=== PATIENT | female | born 1985 | race Two or more races ===

== ENCOUNTER → 2023-05-31 10:30 | Outpatient (BNVA) | payer MEDICARE, OTHER, SELFPAY | PROVIDERS: PCP Student in an Organized Health Care Education/Training Program; Visit Provider Physician Assistant ==

== ENCOUNTER 2023-07-12 11:03 | Outpatient (AMB) | payer MEDICARE, MEDICAID, SELFPAY ==
--- NOTE | 2023-07-12 11:04 | A.OFFVIS_ITS ---
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 She herd about our program from her PCP. Her goal is to lose weight and achieve a healthy lifestyle as well as to improve, if not resolve, obesity related medical conditions, including DM. She reports first being concerned about her weight 5 years ago, highest weight to date was 197. Current weight is 197 pounds with a BMI of 36.6. She has tried multiple methods of weight loss including fad diets without permanent results. She lives with her and 3 kids. 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 She wakes at:?7 am, and goes to bed at?11 pm. Dinner is at 9 pm. Breakfast: skip or cereal frosted flakes w oat milk AM snack: skip Lunch: pasta, chicken, PB and bread PM snack: skip Dinner: rice w meat, ho, steak, vegetables. After dinner: dessert Other snacks: ice cream, popcorn Liquids: 48 oz water, moshe 2 x per month when out at movies, no juice Alcohol/marijuana/tobacco intake: rare etoh, no cannabis, no tobacco Exercise: no exercise, has treadmill at home. GERD score: 16 KEMAR score: 6 ESS score: 4 QOL score: 87 PFSH Surgical History Hx of colonoscopy Family History Mother Family history unknown Father Family history unknown Social History Alcohol intake: current Alcohol intake frequency: holidays/special occasions only Patient Tobacco Use Status: Never used Tobacco Review of Systems Const All systems reviewed & are unremarkable except as noted in HPI and below Physical Exam Const General: cooperative, healthy appearing and no acute distress Orientation/consciousness: patient oriented x3 HEENT Head: Yes normal to inspection Ears: hearing grossly normal bilaterally General nose exam: Normal external nose present Face and sinus: Yes normal facial exam Eyes General: appearance normal, both eyes and all related structures Resp Effort & Inspection: normal respiratory effort Auscultation: clear to auscultation bilaterally Cardio Rate: regular rate Rhythm: regular rhythm Heart sounds: S1 normal heart sound present and S2 normal heart sound present GI Inspection: Yes normal to inspection, No distended and Yes obesity Palpation (GI): Soft to palpation, nontender and no guarding Auscultation: normal bowel sounds Skin General skin exam: no rashes or lesions noted Neuro General: patient oriented x3 Extrem General: No edema Psych Appearance: grossly normal Mental Status: mental status grossly normal Speech and movement: Normal speech and movement present Affect: normal affect Attitude: cooperative Assessment & Plan Assessment & Plan (1) Obesity (BMI 30-39.9): Code(s): E66.9 - Obesity, unspecified Plan: This is a?37 yo female who will start our SWL program to prepare for bariatric surgery.? Blood work, h pylori , CXR, ECG, Abd US and UGI have been ordered. She is being scheduled for RD and BH initial consultations. She will start SWL classes and watch the first three videos before her next appointment. ? Adequate sleep of 7-8 hours per night discussed, awakening at 7 am and going to bed at 11 pm ? Purchase body composition analyzer scale (Adrián castorena or Dejuan recommended) and check weight weekly. The best time to do this is first thing in the morning after going to the bathroom. 1. Nutritional counseling: Be sure to careful read the number of scoops per shake Start with 3 Premier Protein shakes (Big y, [facility], [employer], [employer]), (1 scoop in 8 oz low fat unsweetened almond milk or water each) First shake at 8am-10am, Second shake at 12pm-2pm 1 protein bar ([employer] Perfect bars at [employer], [email or web address], or Big [employer], [employer]) at 3pm- 5pm. Another shake with 1 scoop in 8 oz unsweetened almond milk at 6pm-8pm. Dinner at 9pm (8 forks of protein and 8 forks of salad/vegetables). Meal to include lean meat (beef, fish, pork, turkey, chicken), cooked vegetables or a salad with olive oil and/or fruits (berries, pears, apples, kiwi). Avoid salt, breads, potatoes, rice, pasta, desserts. Try to drink 64 oz of water daily and avoid soda and juices. ?2. Each shake would be drunk slowly, like coffee in a period of 2 hours. ?3. Cut each bar in 4 pieces and eat each piece in 30 min ?to make each bar last 2 hours. ?4. I emphasized the importance of measuring accurately the food portion and measure it carefully when serving the food on the plate ?5. The meal portions include 8 full-size forks of meat and 8 full-size forks of salad. You always eat the meat portion but you can replace up to half of the forks of salad/vegetables with rice, potatoes or pasta, or a fruit ?if you like. The less you do it the better weight loss will be. ?6. One full-size fork is what can be scooped on the fork without falling aside and not what can be bit with the fork. Use regular forks like those you find in a typical restaurant. ?7.? Please send me weight measurements as soon as possible and then once a week. Always include your diet and exercise plan. Alternatively come weekly at the office for weight checks and send me the measurements. ?8. Exercise counseling: Begin by watching a stretching for beginners video. Start slowly and begin to stretch your muscles. You should do this before and after each exercise session to prevent injury. If you join [employer] or use the gym at [facility], ask the manager beauty or one of the trainers how to use the machines if you are unfamiliar with them. Start elliptical with a resistance of 2. Increase resistance by 1 every 3 min to your most comfortable resistance with a max resistance of 8. Reduce the resistance by 1 every 3 minutes back down to 2 and repeat cycles for 300 calories. Alternatively, use your treadmill at home with a speed of 3.0 and incline of 0, increasing incline by 1 every 3 minutes to the highest comfortable level (max 6 for now) then decrease in the same fashion. Repeat process to a goal of 300 calories. Goal of 2000 calories burned or more weekly. You may also consider use of the stationary bike. The easiest would be to chose the fat-burn or interval training program on the machine and do this until you reach the 300 calorie goal. Alternatively, you can manually adjust the resistance in a similar fashion as mentioned above, (resistance of 2-8 with a goal speed of 12 mph). Tracking calories is essential. 9. Alternatively start walking outside daily, tracking calories with a goal of 300 calories per day, daily. You can download the keron [employer] which can track your time, distance and calories while walking outside. You press start in the keron when you start and then stop when you are finished. 10.? It is important to avoid for at least 18 months postoperatively and it has been discussed at the information session 11. Please get labs, EKG and chest X-Ray within 1 week. 12. Discussed and answered all questions regarding?obtained consent to participate in the [facility]?Registry. 13. Please follow the diet plan exactly, without any change. If you do not like something about the plan or you feel hungry, you need to communicate with me so I can help you revise the plan. You should not change the plan yourself. Text me at [phone] 14. Goal is to lose at least 3-4 pounds in the first month Patient is obese and is not considered stable at this time.?I spent a total of 70 minutes reviewing/updating records, examining the patient and counseling the patient on weight management as detailed above. Orders: Orders Lipid Panel Today E11.9 - Type 2 diabetes mellitus without complications, E66.9 - Obesity, unspecified IRON PROFILE Today E11.9 - Type 2 diabetes mellitus without complications, E66.9 - Obesity, unspecified Complete Blood Count Auto Diff Today E11.9 - Type 2 diabetes mellitus without complications, E66.9 - Obesity, unspecified Vitamin B12 and Folate Today E11.9 - Type 2 diabetes mellitus without complications, E66.9 - Obesity, unspecified Zinc Today E11.9 - Type 2 diabetes mellitus without complications, E66.9 - Obesity, unspecified Vitamin B1 Today E11.9 - Type 2 diabetes mellitus without complications, E66.9 - Obesity, unspecified C Reactive Protein Today E11.9 - Type 2 diabetes mellitus without complications, E66.9 - Obesity, unspecified PTHI Today E11.9 - Type 2 diabetes mellitus without complications, E66.9 - Obesity, unspecified Vitamin D 25-OH Total Today E11.9 - Type 2 diabetes mellitus without complications, E66.9 - Obesity, unspecified Hemoglobin A1c Today E11.9 - Type 2 diabetes mellitus without complications, E66.9 - Obesity, unspecified US abdomen comp w elastography Today E11.9 - Type 2 diabetes mellitus without complications, E66.9 - Obesity, unspecified FL upper GI w air Today E11.9 - Type 2 diabetes mellitus without complications, E66.9 - Obesity, unspecified Insulin Today E11.9 - Type 2 diabetes mellitus without complications, E66.9 - Obesity, unspecified Comprehensive Met. Panel Today E11.9 - Type 2 diabetes mellitus without complications, E66.9 - Obesity, unspecified Vitamin A Today E11.9 - Type 2 diabetes mellitus without complications, E66.9 - Obesity, unspecified Ferritin Today E11.9 - Type 2 diabetes mellitus without complications, E66.9 - Obesity, unspecified TSH reflex Free T4 Today E11.9 - Type 2 diabetes mellitus without complications, E66.9 - Obesity, unspecified H Pylori Breath Test Today E11.9 - Type 2 diabetes mellitus without complications, E66.9 - Obesity, unspecified XR chest 2V Today E11.9 - Type 2 diabetes mellitus without complications, E66.9 - Obesity, unspecified ECG 12 lead EKG Today E11.9 - Type 2 diabetes mellitus without complications, E66.9 - Obesity, unspecified Referrals Behavioral Health Referral E11.9 - Type 2 diabetes mellitus without co mplications, E66.9 - Obesity, unspecified Nutrition/Dietitian Referral E11.9 - Type 2 diabetes mellitus without complications, E66.9 - Obesity, unspecified Coding Level of Care Code New Pt Level 5 (85619) Diagnoses Obesity (BMI 30-39.9) E66.9 Time Spent (min) 70
[2023-07-12 11:18] VITALS: BP 123/67; PULSE 80; TEMP 36.7; O2SAT 99; BMI 36.6
== END 2023-07-12 15:18 | disposition home or self-care (01) ==
PROVIDERS: PCP Student in an Organized Health Care Education/Training Program; Visit Provider Physician Assistant Surgical
DX: E66.9 Obesity, unspecified (principal); Z68.36 Body mass index [BMI] 36.0-36.9, adult
CPT/HCPCS: 99205

== ENCOUNTER → 2023-07-12 11:03 | Outpatient (BNVA) | payer MEDICARE, MEDICAID, SELFPAY | PROVIDERS: PCP Student in an Organized Health Care Education/Training Program; Visit Provider Physician Assistant Surgical ==

== ENCOUNTER 2023-07-16 10:13 | Outpatient (REF) | payer MEDICARE, MEDICAID, SELFPAY ==
--- NOTE | ~2023-07-16 | US_ITS ---
EXAMINATION: US COMPLETE ABDOMEN WITH LIVER ELASTOGRAPHY CLINICAL INFORMATION: Obesity COMPARISON: None available. TECHNIQUE: Real-time imaging of the abdominal viscera. Noninvasive ultrasound liver fibrosis assessment is performed using Alexis ElastPQ point quantification shear wave elastography (2D-SWE) with a C5-2 MHz transducer. Multiple elastography samples are obtained. FINDINGS: PANCREAS: Normal. ABDOMINAL AORTA: The proximal, middle, and distal aortic segments are normal in caliber. INFERIOR VENA CAVA: Visualized portions are normal. LIVER: Normal. The liver demonstrates normal size, contour and echogenicity. No focal lesion or intrahepatic biliary duct dilatation. The right lobe measures 14 cm in length. The left lobe measures 12 cm in length. Portal flow is normal/hepatopedal Shear wave liver elastography median stiffness is 1.4 m/s (reference: normal median stiffness is 1.3 m/s or less). IQR/median stiffness to assess sampling precision is 0.1 (reference: good quality data set is IQR/median stiffness of 0.15 or less). GALLBLADDER: Normal. The gallbladder is physiologically distended without evidence of stones, sludge, polyps, wall thickening or pericholecystic fluid. COMMON BILE DUCT: Normal in caliber measuring 0.3 cm in diameter. RIGHT KIDNEY: Normal. No hydronephrosis. No renal calculi or focal parenchymal lesions. The kidney measures 11 cm in maximum dimension. LEFT KIDNEY: There is a 2 x 2 x 1.5 cm cyst with single thin septation. No imaging follow-up recommended. No hydronephrosis. No renal calculi or other focal parenchymal lesions. The kidney measures 12 cm in maximum dimension. SPLEEN: Normal. The spleen measures 9 cm in maximum dimension. FREE FLUID: None. US/US abdomen comp w elastography IMPRESSION: 1. Impression: Normal-appearing liver 2. Liver elastography: Adequate liver sampling. In the absence of other known clinical signs, rules out compensated advanced chronic liver disease. REFERENCE: Society of Radiologists in Ultrasound Liver Stiffness Thresholds (2020): LIVER STIFFNESS THRESHOLDS: *Liver Stiffness equal or less than 1.3 m/s: High probability of being normal. *Liver Stiffness less than 1.7 m/s: In the absence of other known clinical signs, rules out compensated advanced chronic liver disease. *Liver Stiffness 1.7-2.1 m/s: Suggestive of compensated advanced chronic liver disease but need further test for confirmation. *Liver Stiffness over 2.1 m/s: Rules in compensated advanced chronic liver disease. *Liver Stiffness over 2.4 m/s: Suggestive of clinically significant portal hypertension. QUALITY OF DATA SET: *IQR/Median value equal or less than 0.15 implies a quality data set. *IQR/Median value over 0.15 implies a poor quality data set. SIGNIFICANT CHANGE FROM PRIOR EXAM: Significant change if liver stiffness measurement is 10% or greater from prior exam. OTHER CONSIDERATIONS: The stage of liver fibrosis may be overestimated in the setting of acute hepatitis, liver inflammation, elevated liver function tests, hepatic vascular congestion, obstructive cholestasis, non-fasting state, and infiltrative diseases such as amyloidosis and lymphoma. In some patients with NAFLD, the liver stiffness thresholds for compensated advanced chronic liver disease may be lower. In causes other than viral hepatitis and NAFLD, liver stiffness thresholds are not well established.
== END 2023-07-16 10:14 | disposition home or self-care (01) ==
LOC: HO.US 10:13
PROVIDERS: Visit Provider Physician Assistant Surgical
DX: E66.9 Obesity, unspecified (principal); E11.9 Type 2 diabetes mellitus without complications
CPT/HCPCS: 76705; 76981

== ENCOUNTER 2023-07-31 09:00 | Outpatient (AMB) | payer MEDICARE, MEDICAID, SELFPAY ==
--- NOTE | 2023-07-31 09:10 | MHC.WMTHER ---
Intake Intake Visit Reasons: VIDEO BH Intake Allergies No Known Allergies Allergy (Verified 07/12/23 11:08) PFSH Surgical History Hx of colonoscopy Family History Mother Family history unknown Father Family history unknown Social History Alcohol intake: current Alcohol intake frequency: holidays/special occasions only Patient Tobacco Use Status: Never used Tobacco Behavioral Health Assessment Weight Management Therapy Therapy Notes Details Patient is a 37 year old female, who presents for initial behavioral health assessment as part of surgical weight-loss program. PT reports being interested in bariatric surgery to help with her weight loss and to get in tack with her health and life.Her goal is to be at her healthy weight, make healthier food options and feel well with herself. PT disclosed a history of trauma, been in treatment for PTSD, social anxiety, panic attacks and depression. We were unable to complete assessment as we encountered connection issues on multiple times. So we will follo up again in about 4 weeks to finish assessment. Presenting Concerns Referral Source WMP Provider. Pt sees Yasmany Garibay. Reason for referral Complete assessment for bariatric surgery. Precipitating Event Obesity, mental health. Was attending gym last year and didn't see results. Living Situation Current Living Situation Rent At risk of losing current housing? No Satisfied with current living situation? Yes Comments Pt lives with 3 children. Food/Weight/Diet Expectations of change Initial goal is to lose 4-5 Lbs on first month at the program. She wants to be at her healthy BMI or around 125Lbs. History/Relationship with food Tends to skip meals, often will have 1 or 2 meals at day, some other no meals at day. . Meals before starting program: Breakfast: Skip. Once in a while a bowl of cereal if very hungry. Lunch: Skip or Bread/butter/cheese or a PBG sandwich. Dinner: @9-10pm Rice, grilled chicken. Doesn't eat salad unless someone's make it. It can be a bigger portion than usual if hasn't eat all day. Dessert: ice-cream 2x month. Dinner-out 2xmonth. Water trough the day. History/Relationship with weight She was 115-120Lbs around age 17 (2001) before having kids. After 3rd child (2016) she never went under 190Lbs. History/Relationship with dieting Gym membership. 2022 - 3-4 days at week, did weights, conditioning training, body strength and cardio. didn't lose weight. Potion control. Was seen a computer graphics illustrator on a monthly basis at [facility] in [place]. Binge Eating Do you frequently eat large amounts of food in short periods of time, not feeling physically hungry? No Do you feel out of control when you eat a large amount of food in a short period of time? No Do you eat large amounts of food rapidly and typically alone? No Night Eating Do you wake up at least once during the night to eat? No If you wake up in the night, do you find that it is necessary to eat something in order to fall back asleep? No Do you have little or no appetite in the morning and feel very hungry in the evening, often overeating between dinner and when you go to bed? No Social History Cultural/Ethnic information From [facility]. Education Highest grade completed 12th grade. Currently in college. Preferred learning style Visual Currently enrolled in educational program? Yes (At [employer]. Part-time student. Hoping to get her degree in Mobile Event [employer]. ) Interested in further educational program? No Educational Interests/Skills Wants to work fully remote. 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 No Meaningful activities Traveling, watch favorite shows. Financial Situation Describe current financial situation Occasional struggle and Often struggles with finance Financial assistance? [employer] and SSI (For herself.) Service Service? No Mental Health and Addiction Treatment Psychiatric history Disabled due to mental health issues. Pt reports she suffers from PTSD, Social anxiety, panic attacks, Major depression. Never hospitalized for mental health, denies ever been in crisis. Medical and Physical Health Summary Additional Medical History not covered in history None reported Sexual History concerns [phone] Physical exam in the last year? Yes Trauma/Abuse History History of trauma? Yes Questionnaires PHQ-9 Over the last 2 weeks, how often have you been bothered by any of the following problems? 1. Little interest or pleasure in doing things: nearly every day 2. Feeling down, depressed, or hopeless: more than half the days 3. Trouble falling or staying asleep, or sleeping too much: nearly every day 4. Feeling tired or having little energy: nearly every day 5. Poor appetite or overeating: nearly every day 6. Feeling bad about yourself - or that you are a failure or have let yourself or your family down: nearly every day 7. Trouble concentrating on things, such as reading the newspaper or watching television: more than half the days 8. Moving or speaking so slowly that other people could have noticed. Or the opposite - being so fidgety or restless that you have been moving around a lot more than usual: not at all 9. Thoughts that you would be better off or of hurting yourself in some way: not at all Total score: 19 Depression Screening Interpretation: Positive (Scores from PHQ-9 done at intake. Will repeat next appointment.) Depression Screening Follow-up: Existing condition, In treatment and Follow-up Visit Requested Depression Screening Done: Yes Source: Developed by Drs. Zachary Crook, Colette Victor, Miguel Maradiaga and colleagues, with an educational betsey from [employer]. Binge Eating Scale Group 1 A. I don't feel self-conscious about my wt. or body size when I'm with others. B. I feel concerned about how I look to others, but it normally does not make me fell disappointed with myself C. I do get self-conscious about my appearance and wt. which makes me feel disappointed in myself. D. I feel very self-conscious about my wt. and frequently I feel intense shame and disgust for myself. I try to avoid social contacts because of my self-consciousness. Response Group 1: D Group 2 A. I don't have any difficulty eating slowly in the proper manner. B. Although I seem to gobble down foods, I don't end up feeling stuffed because of eating to much. C. At times, I tend to eat quickly and then, I feel uncomfortably full afterwards. D. I have the habit of bolting down my food, without really chewing it. When this happens I usually feel uncomfortably stuffed because I've eaten to much. Response Group 2: A Group 3 A. I feel capable to control my eating urges when I want to. B. I feel like I have failed to control my eating more than the average person. C. I feel utterly helpless when it comes to feeling in control of my eating urges. D. Because I feel so helpless about controlling my eating I have become very desperate about trying to get control. Response Group 3: C Group 4 A. I don't have the habit of eating when I'm bored. B. I sometimes eat when I'm bored, but often I'm able to get busy and get my mind off food. C. I have a regular habit of eating when I'm bored, but occasionally, I can use some other activity to get my mind off eating. D. I have a strong habit of eating when I'm bored. Nothing seems to help me breath the habit. Response Group 4: A Group 5 A. I'm usually physically hungry when I eat something. B. Occasionally, I eat something on impulse even though I really am not hungry. C. I have the regular habit of eating foods, that I might not really enjoy, to satisfy a hungry feeling even though physically, I don't need the food. D. Although I'm not physically hungry, I get a hungry feeling in my mouth that only seems to be satisfied when I eat a food, like sandwich, that fills my mouth. Sometimes, when I eat the food to satisfy my mouth hunger, I then spit the food out so I won't gain weight. Response Group 5: B Group 6 A. I don't feel any guilt or self-hate after I overeat. B. After I overeat, occasionally I feel guilt or self-hate. C. Almost all the time I experience strong guilt or self-hate after I overeat. Response Group 6: B Group 7 A. I don't lose total control of my eating when dieting even after periods when I overeat. B. Sometimes when I eat a forbidden food on a diet, I feel like I blew it and eat even more. C. Frequently, I have the habit of saying to myself, I've blown it now, why not go all the way, when I overeat on a diet. When that happens I eat more. D. I have a regular habit of starting a strict diets for myself but I break the diets by going on an eating binge. My life seems to be either a feast or famine. Response Group 7: A Group 8 A. I rarely eat so much food that I feel uncomfortably stuffed afterwards. B. Usually about once a month, I each such a quantity of food, I end up feeling very stuffed. C. I have regular periods during the month when I eat large amounts of food, either at mealtime or at snacks. D. I eat so much food that I regularly feel quite uncomfortable after eating and sometimes a bit nauseous. Response Group 8: B Group 9 A. My level of calorie intake does not go up very high or go down very low on a regular basis. B. Sometimes after I overeat, I will try to reduce my caloric intake to almost nothing to compensate for the excess calories I've eaten. C. I have a regular habit of overeating during the night. It seems that my routine is not to be hungry in the morning but overeat in the evening. D. In my adult years, I have had week-long periods where I practically starve myself. This follows periods when I overeat. It seems I live a life of either feast or famine. Response Group 9: A Group 10 A. I usually am able to stop eating when I want to. I know when enough is enough. B. Every so often, I experience a compulsion to eat which I can't seem to control. C. Frequently, I experience strong urges to eat which I seem unable to control, but at other times I can control my eating urges. D. I feel incapable of controlling urges to eat. I have a fear of not being able to stop eating voluntarily. Response Group 10: A Group 11 A. I don't have any problem stopping eating when I feel full. B. I usually can stop eating when I feel full but occasionally overeat leaving me feeling uncomfortably stuffed. C. I have a problem stopping eating once I start and usually I feel uncomfortably stuffed after I eat a meal. D. Because I have a problem not being able to stop eating when I want, I sometimes have to induce vomiting to relieve my stuffed feeling. Response Group 11: A Group 13 A. I eat three meals a day with only an occasional between meal snack. B. I eat 3 meals a day, but I also normally snack between meals. C. When I am snacking heavily, I get in the habit of skipping regular meals. D. There are regular periods when I seem to be continually eating, with no planned meals. Response Group 13: D Group 14 A. I don't think much about trying to control unwanted eating urges. B. At least some of the time, I feel my thoughts are pre-occupied with trying to control my eating urges. C. I feel that frequently I spend much time thinking about how much I ate or about trying not to eat anymore. D. It seems to me that most of my waking hours are pre-occupied by thoughts about eating or not eating. I feel like I'm constantly struggling not to eat. Response Group 14: C Group 15 A. I don't think about food a great deal. B. I have strong craving for food but they last only for brief periods of time. C. I have days when I can't seem to think about anything else but food. D. Most of my days seem to be pre-occupied with thoughts about food. I feel like I live to eat. Response Group 15: A Group 16 A. I usually know whether or not I'm physically hungry. I take the right portion of food to satisfy me. B. Occasionally, I feel uncertain about knowing whether or not I'm physically hungry. A these times it's hard to know how much food I should take to satisfy me. C. Even though I might know how many calories I should eat, I don't have any idea what is a normal amount of food for me. Response Group 16: B Binge Eating Score: 14 Score less than 17 Minimal Risk Score between 18-26 Moderate Risk Score between 27-46 High Risk Assessment & Plan Assessment & Plan (1) PTSD (post-traumatic stress disorder): Code(s): F43.10 - Post-traumatic stress disorder, unspecified (2) Depression: Code(s): F32.A - Depression, unspecified Qualifiers: Depression Type: unspecified Qualified Code(s): F32.A - Depression, unspecified (3) Panic attacks: Code(s): F41.0 - Panic disorder [episodic paroxysmal anxiety] Plan Assessment not finished due to connections issues. We will meet again in 08/26/23 at 9am via telehealth to finish assessment. Telehealth Telehealth Location of provider rendering services: other (Home office. [place], [place].) Location of patient: address on file Patient Identification confirmed using: Name, : Yes Telehealth method: video Patient verbally consented to treatment: Yes Patient verbally consented to billing insurance company: Yes Patient informed of any privacy concerns related to visit: Yes Minutes spent on Phone/Video with Pt.: 45 Coding Level of Care Code New Pt Tele Psy Diag Eval (84747) Patient Type New Diagnoses PTSD (post-traumatic stress disorder) F43.10 Depression, unspecified depression type F32.A Depression Type: unspecified Panic attacks F41.0 Time Spent (min) 45
== END 2023-07-31 10:00 | disposition home or self-care (01) ==
LOC: HO.HBST 09:17
PROVIDERS: PCP Student in an Organized Health Care Education/Training Program; Visit Provider Counselor Mental Health
DX: F43.10 Post-traumatic stress disorder, unspecified (principal); F32.A Depression, unspecified; F41.0 Panic disorder [episodic paroxysmal anxiety]
CPT/HCPCS: 90791

== ENCOUNTER → 2023-07-31 09:00 | Outpatient (BNVA) | payer MEDICARE, MEDICAID, SELFPAY | PROVIDERS: PCP Student in an Organized Health Care Education/Training Program; Visit Provider Counselor Mental Health ==

== ENCOUNTER 2023-08-02 10:59 | Outpatient (REF) | payer MEDICARE, MEDICAID, SELFPAY ==
[2023-08-04 15:19] LABS: H Pylori Breath Test Negative (Negative)
== END 2023-08-02 11:00 | disposition home or self-care (01) ==
LOC: HO.LNP 10:59
PROVIDERS: PCP Student in an Organized Health Care Education/Training Program; Visit Provider Physician Assistant Surgical
DX: E66.9 Obesity, unspecified (principal); E11.9 Type 2 diabetes mellitus without complications; Z11.0 Encounter for screening for intestinal infectious diseases
CPT/HCPCS: 83013; 99211

== ENCOUNTER 2023-08-09 10:53 | Outpatient (REF) | payer MEDICARE, MEDICAID, SELFPAY ==
[2023-08-09 12:04] LABS: MANUAL DIFF FLAG NO
[2023-08-09 12:21] LABS: Basophils Absolute Auto 0.1 X10*3/uL (0.0-0.2); Eosinophils Absolute Auto 0.3 X10*3/uL (0.0-0.4); Eosinophils Percent Auto 4.1 % (0-4); Hematocrit 40.4 % (37.0-47.0); Hemoglobin 13.2 g/dl (12.0-16.0); Imm Gran Abs Auto 0.02 X10*3/uL (0.00-0.03); Imm Gran Pct Auto 0.3 % (0.0-0.4); Lymphocytes Absolute Auto 3.2 X10*3/uL (1.2-4.9); Lymphocytes Percent Auto 41.2 % (20-40); Mean Corpuscular HGB Conc 32.7 g/dl (31.0-35.0); Mean Corpuscular Hemoglobin 26.8 pg (27.0-33.0); Mean Corpuscular Volume 82.1 fL (80.0-98.0); Monocytes Absolute Auto 0.5 X10*3/uL (0.1-1.2); Monocytes Percent Auto 6.1 % (2-11); Neutrophils Absolute Auto 3.7 x10*3/uL (2.0-8.3); Neutrophils Percent Auto 47.3 % (45-73); Platelet Count 322 X10*3/uL (160-400); Red Blood Count 4.92 X10*6/uL (4.20-5.50); Red Cell Distribution Width 14.5 % (11.0-16.0); White Blood Count 7.8 X10*3/uL (4.8-10.8)
[2023-08-09 12:33] LABS: Estimated Average Glucose 126 mg/dL
[2023-08-09 13:02] LABS: Alanine Aminotransferase 24 U/L (0-31); Albumin Level 4.1 g/dL (3.5-5.0); Alkaline Phosphatase 66 U/L (39-117); Anion Gap 12 (12-20); Aspartate Amino Transferase 21 U/L (5-31); Bilirubin Total 0.4 mg/dL (0.0-1.0); Blood Urea Nitrogen 20 mg/dL (9-16); C Reactive Protein 0.21 mg/dL (< or = 0.50); Calcium 9.7 mg/dL (8.4-10.2); Carbon Dioxide 21 mmol/L (22-29); Chloride 107 mmol/L (96-108); Cholesterol 142 mg/dL (<200); Estimated Glomerular Filt Rate > 60; Glucose Random 106 mg/dL (60-115); HDL Cholesterol 33 mg/dL (>40); Iron 81 mcg/dL (30-160); LDL Cholesterol Calculated 94 mg/dL (<100); Percent Iron Saturation 24 % (15-50); Potassium 4.1 mmol/L (3.3-5.1); Sodium 136 mmol/L (135-145); Total Iron Binding Capacity 337 mcg/dL (228-428); Total Protein 8.2 g/dL (6.5-8.0); Triglycerides 77 mg/dL (<150); Unsaturated Iron Binding 256 ug/dL
[2023-08-09 13:08] LABS: Ferritin 75 ng/mL (10-250); Insulin 32 uU/mL (2-29); TSH reflex Free T4 0.95 uIU/mL (0.32-4.0)
[2023-08-12 11:04] LABS: Calcium (PTHI) 9.7 mg/dL (8.6-10.2); PTHI 24 pg/mL (16-77)
[2023-08-13 01:29] LABS: Zinc 76 mcg/dL (60-130)
== END 2023-08-09 10:54 | disposition home or self-care (01) ==
LOC: HO.LAB 10:53
PROVIDERS: PCP Student in an Organized Health Care Education/Training Program; Visit Provider Physician Assistant Surgical
DX: E66.9 Obesity, unspecified (principal); Z68.35 Body mass index [BMI] 35.0-35.9, adult; E11.9 Type 2 diabetes mellitus without complications
CPT/HCPCS: 36415; 80053; 80061; 82728; 83036; 83525; 83540; 83970; 84443; 84630; 85025; 86140; 99212

== ENCOUNTER 2023-08-09 10:53 | Outpatient (AMB) | payer MEDICARE, MEDICAID, SELFPAY ==
--- NOTE | 2023-08-09 10:55 | MHC.OFFVISWM ---
Intake VS Expanded 08/09/23 11:01 BP 108/68 Blood Pressure Location Rt brachial Blood Pressure Position Sitting Pulse 94 Pulse Source Pulse Oximeter Temp 98.5 F Temperature Source Temporal Artery Scan Pulse Oximetry 95 Oxygen Delivery Method Room Air Height 5 ft 1.5 in Weight 188 lb 6.4 oz BMI 35.0 Body Fat % 43.4 Body Fat Mass 81.8 Fat Free Mass 106.4 Visceral Fat Rating 10.0 Body Water % 40.4 Body Water Mass 76.0 Muscle Mass/Score 101.0 Basal Metabolic Rate/Score 1,502 Intake Visit Reasons: (OV) F/U SWL Chief Green Officer Required: No Allergies No Known Allergies Allergy (Verified 08/09/23 11:00) Medication List - Last Reconciled 08/09/[address]iz omeprazole 20 mg PO DAILY semaglutide (Rybelsus) 3 mg PO DAILY trazodone 25 mg PO BEDTIME HPI HPI Comments History of Present Illness Details The patient is a pleasant 38 year old female who returns to the clinic for pre-operative surgical weight loss management. They were last seen in the office on 07/12/23, recorded weight at that time was 197 pounds, with a BMI of 36.6. Today's weight is 188.4 pounds and BMI is 35. There has been a weight loss of 1.2 pounds with a total body weight loss of 0.6 %. She states that she has a feeling of mental fog and she is unsure about proceeding with surgery. Pre op work up completed as follows: SWL classes:? [] BH appts: f/u 09/05/23 ? ? RD appts: 08/23/23 Labs: not yet done H. pylori: 08/02/23-neg CXR: not yet done EKG: not yet done ABD U/S: 07/16/23-mild fatty liver UGI: 10/03/23 The patient reports she is not happy with three shakes per day. She states she can tolerate 2 shakes, morning and afternoon but does not want the third shake. She states she would like small food portions and less liquids. Current meal plan includes: 3 Premier Protein shakes (Big [employer], [employer], [employer], [employer]), (1 scoop in 8 oz low fat unsweetened almond milk or water each) First shake at 8am-10am, Second shake at 12pm-2pm 1 protein bar (Zone Perfect bars at [employer], [employer], or [employer], [employer]) at 3pm-5pm. Another shake with 1 scoop in 8 oz unsweetened almond milk at 6pm-8pm. Dinner at 9pm (8 forks of protein and 8 forks of salad/vegetables). Drinking 32-48 oz of water Current exercise plan includes: treadmill, 4-5 x per week. PFSH Surgical History Hx of colonoscopy Family History Mother Family history unknown Father Family history unknown Social History Alcohol intake: current Alcohol intake frequency: holidays/special occasions only Patient Tobacco Use Status: Never used Tobacco Physical Exam Const General: healthy appearing and no acute distress Resp Effort & Inspection: normal respiratory effort Auscultation: clear to auscultation bilaterally Cardio Rate: regular rate Rhythm: regular rhythm GI Auscultation: normal bowel sounds Extrem General: Yes normal to inspection Assessment & Plan Assessment & Plan (1) Obesity (BMI 30-39.9): Code(s): E66.9 - Obesity, unspecified Plan: Patient requested change protein supplement. Additionally change meal plan. Start Orgain 2 scoops in 8 oz of almond milk, adding ice if needed in the morning followed by 2 meals with 8 forks of protein and 8 for of vegetables. Zone perfect bar in the afternoon. Encouraged to go to [facility] and continue with the use of the treadmill. She will return to the clinic in 4 weeks. Reminded of upcoming appointments and to get labs done. Coding Level of Care Code Est Pt Level 3 (83421) Diagnoses Obesity (BMI 30-39.9) E66.9
[2023-08-09 11:01] VITALS: BP 108/68; PULSE 94; TEMP 36.9; O2SAT 95; BMI 35.0
== END 2023-08-09 13:15 | disposition home or self-care (01) ==
PROVIDERS: PCP Student in an Organized Health Care Education/Training Program; Visit Provider Physician Assistant Surgical
DX: E66.9 Obesity, unspecified (principal); Z68.35 Body mass index [BMI] 35.0-35.9, adult
CPT/HCPCS: 99213

== ENCOUNTER → 2023-08-23 11:28 | Outpatient (BNVA) | payer MEDICARE, MEDICAID, SELFPAY | PROVIDERS: PCP Student in an Organized Health Care Education/Training Program; Visit Provider Dietitian, Registered | DX: E66.9 Obesity, unspecified (principal) | CPT/HCPCS: 97802 ==

== ENCOUNTER 2023-08-26 09:00 | Outpatient (AMB) | payer MEDICARE, MEDICAID, SELFPAY ==
--- NOTE | 2023-08-26 09:08 | MHC.WMTHER ---
Intake Intake Visit Reasons: VIDEO F/U Allergies No Known Allergies Allergy (Verified 08/09/23 11:00) PFSH Surgical History Hx of colonoscopy Family History Mother Family history unknown Father Family history unknown Social History Alcohol intake: current Alcohol intake frequency: holidays/special occasions only Patient Tobacco Use Status: Never used Tobacco Behavioral Health Assessment Weight Management Therapy Therapy Notes Details Patient is a 37 year old female, who presents for a follow up after meeting on 07/31 for intake. Today we finished her assessment, however PT is not cleared as she is presenting with active depression and reported ongoing challenges with panic-like Sx. Patient is currently seen on a weekly basis by her therapist per psychiatrist advise. Today PHQ-9 scores were high again. Presenting Concerns Referral Source P Provider. Pt sees Yasmany Garibay. Reason for referral Complete assessment for bariatric surgery. Precipitating Event Obesity, mental health. Was attending gym last year and didn't see results. Living Situation Current Living Situation Rent At risk of losing current housing? No Satisfied with current living situation? Yes Comments Pt lives with 3 children. Food/Weight/Diet Expectations of change Initial goal is to lose 4-5 Lbs on first month at the program. She wants to be at her healthy BMI or around 125Lbs. History/Relationship with food Tends to skip meals, often will have 1 or 2 meals at day, some other no meals at day. . Meals before starting program: Breakfast: Skip. Once in a while a bowl of cereal if very hungry. Lunch: Skip or Bread/butter/cheese or a PBG sandwich. Dinner: @9-10pm Rice, grilled chicken. Doesn't eat salad unless someone's make it. It can be a bigger portion than usual if hasn't eat all day. Dessert: ice-cream 2x month. Dinner-out 2xmonth. Water trough the day. History/Relationship with weight She was 115-120Lbs around age 17 (2001) before having kids. After 3rd child (2015) she never went under 190Lbs. History/Relationship with dieting Gym membership. 2023 - 3-4 days at week, did weights, conditioning training, body strength and cardio. didn't lose weight. Potion control. Was seen a evp of products & co founder on a monthly basis at [facility] in [place]. Binge Eating Do you frequently eat large amounts of food in short periods of time, not feeling physically hungry? No Do you feel out of control when you eat a large amount of food in a short period of time? No Do you eat large amounts of food rapidly and typically alone? No Night Eating Do you wake up at least once during the night to eat? No If you wake up in the night, do you find that it is necessary to eat something in order to fall back asleep? No Do you have little or no appetite in the morning and feel very hungry in the evening, often overeating between dinner and when you go to bed? No Social History Family history and relationship 10 years ago. They have a 7 y/o son together, Pt has has 2 oldest kids from previous relationship (they are 21 and 17). Parents are alive and together and live close to her. She has 4 sister, 2 of them are closer to her and live near. 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 Developmental history and status None reported. Social support . Community support Therapist, , friends. 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 Cultural/Ethnic information From [facility]. Legal Involvement and History Current or historical involvement with the legal system? None reported. Education Highest grade completed 12th grade. Currently in college. Preferred learning style Visual Currently enrolled in educational program? Yes (At [employer]. Part-time student. Hoping to get her degree in [employer]. ) Interested in further educational program? No Educational Interests/Skills Wants to work fully remote. 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 No Meaningful activities Traveling, watch favorite shows. Financial Situation Describe current financial situation Occasional struggle and Often struggles with finance Financial assistance? Food [place] and SSI (For herself.) Service Service? No Mental Health and Addiction Treatment Current/Past substance abuse? Yes Comments Marijuana, once in a while for anxiety. She has a medical card. On average 0-1 times at month. Current/Past addictive behavior concerns? No Psychiatric history Pt sees a therapist every week from [facility]. Her PCP prescribes her with Trazodone 25mg for sleep. Disabled due to mental health issues. Pt reports she suffers from PTSD, Social anxiety, panic attacks, Major depression. Never hospitalized for mental health, denies ever been in crisis. Pt reports a Hx of SI over 8 years ago, had a SA in 2009 but was not hospitalized. PT denies any safety concerns around self-harming in last 2 years. PT reports she calvert been stable the past years, but she has mild panic like-symptoms 1-2 times at weeks and, she's able to cope and prevent a full panic attack. She also has lapses with depression couple consecutive days at week. Medical and Physical Health Summary Additional Medical History not covered in history None reported Sexual History concerns None. Physical exam in the last year? Yes Pain Screening Current pain? No Pain in the last few months? No Medications Is the patient compliant with medications? Yes Does the patient have Sloan Guardian in place? Not applicable Does the patient use complimentary health approaches? No Trauma/Abuse History History of trauma? Yes (PT rather not to disclose.) Questionnaires PHQ-9 Over the last 2 weeks, how often have you been bothered by any of the following problems? 1. Little interest or pleasure in doing things: several days 2. Feeling down, depressed, or hopeless: more than half the days 3. Trouble falling or staying asleep, or sleeping too much: several days 4. Feeling tired or having little energy: more than half the days (Usually in the afternoons.) 5. Poor appetite or overeating: several days (Poor appetite, needs to force to eat herself. ) 6. Feeling bad about yourself - or that you are a failure or have let yourself or your family down: nearly every day ( An everyday thing ) 7. Trouble concentrating on things, such as reading the newspaper or watching television: not at all 8. Moving or speaking so slowly that other people could have noticed. Or the opposite - being so fidgety or restless that you have been moving around a lot more than usual: several days 9. Thoughts that you would be better off or of hurting yourself in some way: not at all Total score: 11 Depression Screening Interpretation: Positive Depression Screening Done: Yes 49696 - PHQ-9 Billing: Yes Source: Developed by Drs. Zachary Crook, Colette Victor, Miguel Maradiaga and colleagues, with an educational betsey from [employer]. Assessment & Plan Assessment & Plan (1) PTSD (post-traumatic stress disorder): Code(s): F43.10 - Post-traumatic stress disorder, unspecified (2) Depression: Code(s): F32.A - Depression, unspecified Qualifiers: Depression Type: major depressive disorder Major depression recurrence: recurrent Active/Remission status: currently active Major depression episode severity: moderate Qualified Code(s): F33.1 - Major depressive disorder, recurrent, moderate (3) Panic attacks: Code(s): F41.0 - Panic disorder [episodic paroxysmal anxiety] Plan Not cleared due to active depression. Pt will be seen in about a month. Clinician will consult with team about clearance. Also, Patient will need a letter from providers. Next keron 09/23 at 10am - Telehealth. Telehealth Telehealth Location of provider rendering services: other Location of patient: address on file Patient Identification confirmed using: Name, : Yes Telehealth method: video Patient verbally consented to treatment: Yes Patient verbally consented to billing insurance company: Yes Patient informed of any privacy concerns related to visit: Yes Minutes spent on Phone/Video with Pt.: 60 Coding Level of Care Code Established Pt Tele Psytx >53 mins (03979) Patient Type Established Diagnoses PTSD (post-traumatic stress disorder) F43.10 Moderate episode of recurrent major depressive disorder F33.1 Depression Type: major depressive disorder Major depression recurrence: recurrent Active/Remission status: currently active Major depression episode severity: moderate Panic attacks F41.0 Time Spent (min) 60
== END 2023-08-26 09:45 | disposition home or self-care (01) ==
LOC: HO.HBST 09:10
PROVIDERS: PCP Student in an Organized Health Care Education/Training Program; Visit Provider Counselor Mental Health
DX: F43.10 Post-traumatic stress disorder, unspecified (principal); F33.1 Major depressive disorder, recurrent, moderate; F41.0 Panic disorder [episodic paroxysmal anxiety]
CPT/HCPCS: 90837

== ENCOUNTER → 2023-08-26 09:00 | Outpatient (BNVA) | payer MEDICARE, MEDICAID, SELFPAY | PROVIDERS: PCP Student in an Organized Health Care Education/Training Program; Visit Provider Counselor Mental Health ==

== ENCOUNTER → 2023-09-23 10:00 | Outpatient (BNVA) | payer MEDICARE, MEDICAID, SELFPAY | PROVIDERS: PCP Student in an Organized Health Care Education/Training Program; Visit Provider Counselor Mental Health ==

== ENCOUNTER → 2023-09-23 10:00 | Outpatient (AMB) | payer MEDICARE, MEDICAID, SELFPAY ==
--- NOTE | 2023-09-23 10:18 | MHC.WMTHER ---
Intake Intake Visit Reasons: VIDEO F/U Allergies No Known Allergies Allergy (Verified 08/09/23 11:00) PFSH Surgical History Hx of colonoscopy Family History Mother Family history unknown Father Family history unknown Social History Alcohol intake: current Alcohol intake frequency: holidays/special occasions only Patient Tobacco Use Status: Never used Tobacco Behavioral Health Assessment Weight Management Therapy Therapy Notes Details PT presents for a follow up. PT reports she has been sick and when sick she doesn't eat as indicated due to poor appetite. On the other hand, her schedule has been very busy and she has not been focusing on monitoring her mental health, but she has had panic like Symptoms which indicates her she needs to slow down. Provided with support for Sx management and relapse prevention. Worked on decision making and explored all of her options for weight-loss. Advised her to discuss these concerns with Yasmany. Presenting Concerns Referral Source [facility] Provider. Pt sees Yasmany Graibay. Reason for referral Complete assessment for bariatric surgery. Precipitating Event Obesity, mental health. Was attending gym last year and didn't see results. Living Situation Current Living Situation Rent At risk of losing current housing? No Satisfied with current living situation? Yes Comments Pt lives with 3 children. Food/Weight/Diet Expectations of change Initial goal is to lose 4-5 Lbs on first month at the program. She wants to be at her healthy BMI or around 125Lbs. History/Relationship with food Tends to skip meals, often will have 1 or 2 meals at day, some other no meals at day. . Meals before starting program: Breakfast: Skip. Once in a while a bowl of cereal if very hungry. Lunch: Skip or Bread/butter/cheese or a PBG sandwich. Dinner: @9-10pm Rice, grilled chicken. Doesn't eat salad unless someone's make it. It can be a bigger portion than usual if hasn't eat all day. Dessert: ice-cream 2x month. Dinner-out 2xmonth. Water trough the day. History/Relationship with weight She was 115-120Lbs around age 17 (2001) before having kids. After 3rd child (2016) she never went under 190Lbs. History/Relationship with dieting Gym membership. 2022 - 3-4 days at week, did weights, conditioning training, body strength and cardio. didn't lose weight. Potion control. Was seen a design verification engineer on a monthly basis at [facility] in [place]. Binge Eating Do you frequently eat large amounts of food in short periods of time, not feeling physically hungry? No Do you feel out of control when you eat a large amount of food in a short period of time? No Do you eat large amounts of food rapidly and typically alone? No Night Eating Do you wake up at least once during the night to eat? No If you wake up in the night, do you find that it is necessary to eat something in order to fall back asleep? No Do you have little or no appetite in the morning and feel very hungry in the evening, often overeating between dinner and when you go to bed? No Social History Family history and relationship 10 years ago. They have a 7 y/o son together, Pt has has 2 oldest kids from previous relationship (they are 21 and 17). Parents are alive and together and live close to her. She has 4 sister, 2 of them are closer to her and live near. 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 Developmental history and status None reported. Social support . Community support Therapist, , friends. Hinduism/Spirituality Christianity. Cultural/Ethnic information From [facility]. Legal Involvement and History Current or historical involvement with the legal system? None reported. Education Highest grade completed 12th grade. Currently in college. Preferred learning style Visual Currently enrolled in educational program? Yes (At [employer]. Part-time student. Hoping to get her degree in [employer]. ) Interested in further educational program? No Educational Interests/Skills Wants to work fully remote. 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 No Meaningful activities Traveling, watch favorite shows. Financial Situation Describe current financial situation Occasional struggle and Often struggles with finance Financial assistance? Food [place] and SSI (For herself.) Service Service? No Mental Health and Addiction Treatment Current/Past substance abuse? Yes Comments Marijuana, once in a while for anxiety. She has a medical card. On average 0-1 times at month. Current/Past addictive behavior concerns? No Psychiatric history Pt sees a therapist every week from [facility]. Her PCP prescribes her with Trazodone 25mg for sleep. Disabled due to mental health issues. Pt reports she suffers from PTSD, Social anxiety, panic attacks, Major depression. Never hospitalized for mental health, denies ever been in crisis. Pt reports a Hx of SI over 8 years ago, had a SA in 2009 but was not hospitalized. PT denies any safety concerns around self-harming in last 2 years. PT reports she calvert been stable the past years, but she has mild panic like-symptoms 1-2 times at weeks and, she's able to cope and prevent a full panic attack. She also has lapses with depression couple consecutive days at week. Medical and Physical Health Summary Additional Medical History not covered in history None reported Sexual History concerns None. Physical exam in the last year? Yes Pain Screening Current pain? No Pain in the last few months? No Medications Is the patient compliant with medications? Yes Does the patient have Sloan Guardian in place? Not applicable Does the patient use complimentary health approaches? No Trauma/Abuse History History of trauma? Yes (PT rather not to disclose.) Assessment & Plan Assessment & Plan (1) PTSD (post-traumatic stress disorder): Code(s): F43.10 - Post-traumatic stress disorder, unspecified (2) Depression: Code(s): F32.A - Depression, unspecified (3) Panic attacks: Code(s): F41.0 - Panic disorder [episodic paroxysmal anxiety] Plan Pt has expressed her personal concerns about moving forward for surgery due to her mental health, college and family situation. At this time, PT is not clear as she has active mental health Sx and is not considered stable for surgery. If patient decides to move forward with surgery, then she will need to provide letter from providers and have another assessment with or Ling. No F/up is required at this time. Telehealth Telehealth Location of provider rendering services: other Location of patient: address on file Patient Identification confirmed using: Name, : Yes Telehealth method: voice only Patient verbally consented to treatment: Yes Patient verbally consented to billing insurance company: Yes Patient informed of any privacy concerns related to visit: No Minutes spent on Phone/Video with Pt.: 45 Coding Level of Care Code Established Pt Tele Psytx 45 mins ([id number]) Patient Type Established Diagnoses PTSD (post-traumatic stress disorder) F43.10 Depression F32.A Panic attacks F41.0 Time Spent (min) 45
== END ==
PROVIDERS: PCP Student in an Organized Health Care Education/Training Program; Visit Provider Counselor Mental Health
DX: F43.10 Post-traumatic stress disorder, unspecified (principal); F32.A Depression, unspecified; F41.0 Panic disorder [episodic paroxysmal anxiety]
CPT/HCPCS: 90834

== ENCOUNTER 2023-10-09 10:17 | Outpatient (AMB) | payer MEDICARE, MEDICAID, SELFPAY ==
--- NOTE | 2023-10-09 08:14 | MHC.OFFVISWM ---
Intake VS Expanded 10/09/23 08:15 Height 5 ft 1.5 in Weight 186 lb 9.6 oz BMI 34.7 Intake Visit Reasons: VIDEO F/U SWL Consulting Services Manager Required: No Allergies No Known Allergies Allergy (Verified 08/09/23 11:00) Medication List - Last Reconciled 10/09/[address] Ortiz omeprazole 20 mg PO DAILY semaglutide (Rybelsus) 3 mg PO DAILY trazodone 25 mg PO BEDTIME HPI HPI Comments History of Present Illness Details The patient is a pleasant 38 year old female who returns to the clinic for pre-operative surgical weight loss management. They were last seen in the office on 08/09/2023, recorded weight at that time was 188.4 pounds, with a BMI of 35. Today's weight is 186.6 pounds and BMI is 34.7. There has been a weight loss of 3 pounds since initiating the surgical weight loss program on 05/31/23 with a total body weight loss of 1.5 %. Pre op work up completed as follows: SWL classes:? [] BH appts: f/u 09/05/23 ? ? RD appts: 08/23/23 Labs: not yet done H. pylori: 08/02/23-neg CXR: not yet done EKG: not yet done ABD U/S: 07/16/23-mild fatty liver UGI: 10/03/23 The patient reports she has had increased back pain down her legs.She describes it as going down the back of her legs, mostly left leg. She describes it as cramping, without pins and needles or numbness. She has tried ibuprofen without improvement but it does resolve spontaneously after 30 minutes. This is occurring up to 4 x per day. Her friend applied icy-hot to low back and leg and that helped. No severe pain over the last 2-3 days. She spoke with her PCP and was referred to PT and chiropractor. She states she would like change to MWL and not pursue a SWL option at this time. Current meal plan includes: Orgain 2 scoops in 8 oz of almond milk, adding ice if needed in the morning followed by 2 meals with 8 forks of protein and 8 for of vegetables. Zone perfect bar in the afternoon. Drinking 16 oz of water Current exercise plan includes: none in the last 1.5 weeks. PFSH Surgical History Hx of colonoscopy Family History Mother Family history unknown Father Family history unknown Social History Alcohol intake: current Alcohol intake frequency: holidays/special occasions only Patient Tobacco Use Status: Never used Tobacco Assessment & Plan Assessment & Plan (1) Obesity (BMI 30-39.9): Code(s): E66.9 - Obesity, unspecified Plan: Patient wishes to transition to a medical weight loss pathway. She will continue her current meal plan. She will follow up with her physical therapy regarding her musculoskeletal leg pain. I suggested that this may be directly related to poor fluid intake and she was encouraged to increase her water intake to 64 oz daily. She will resume treadmill when she is able. She will follow-up in the office in approximately 6 weeks. Telehealth Telehealth Location of provider rendering services: practice address Location of patient: address on file Patient Identification confirmed using: Name, : Yes Telehealth method: voice only Patient verbally consented to treatment: Yes Patient verbally consented to billing insurance company: Yes Patient informed of any privacy concerns related to visit: Yes Minutes spent on Phone/Video with Pt.: 15 Coding Level of Care Code Tele Est Pt Level 3 (00688) Diagnoses Obesity (BMI 30-39.9) E66.9 Time Spent (min) 20
[2023-10-09 08:15] VITALS: BMI 34.7
== END 2023-10-09 10:21 | disposition home or self-care (01) ==
LOC: HO.HBS 10:17
PROVIDERS: PCP Student in an Organized Health Care Education/Training Program; Visit Provider Physician Assistant Surgical
DX: E66.9 Obesity, unspecified (principal); Z68.34 Body mass index [BMI] 34.0-34.9, adult
CPT/HCPCS: 99442

== ENCOUNTER → 2023-10-09 10:17 | Outpatient (BNVA) | payer MEDICARE, MEDICAID, SELFPAY | PROVIDERS: PCP Student in an Organized Health Care Education/Training Program; Visit Provider Physician Assistant Surgical ==

== ENCOUNTER 2023-12-10 11:58 | Outpatient (AMB) | payer MEDICARE, MEDICAID, SELFPAY ==
--- NOTE | 2023-12-10 08:30 | A.OFFVIS_ITS ---
Intake VS Expanded 12/10/23 08:31 Height 5 ft 1.5 in Weight 186 lb 3.2 oz BMI 34.6 Intake Visit Reasons: VIDEO F/U MWL Financial Report Service Sales Agent Required: No Allergies No Known Allergies Allergy (Verified 08/09/23 11:00) Medication List - Last Reconciled 12/10/[address] Ortiz omeprazole 20 mg PO DAILY semaglutide (Rybelsus) 3 mg PO DAILY trazodone 25 mg PO BEDTIME HPI HPI Comments History of Present Illness Details The patient is a pleasant 38 year old female who returns to the clinic for pre-operative surgical weight loss management. They were last seen in the office on 10/09/23, recorded weight at that time was 186.6 pounds, with a BMI of 34.7. Today's weight is 186.2 pounds and BMI is 34.6. There has been a weight loss of 3.4 pounds since initiating the surgical weight loss program on 05/31/23 with a total body weight loss of 1.7 %. The patient reports she is considering taking a break from the program and working with her own program professional. She also had considered [facility] from [facility]. 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 She has been having difficulty following any sort of consistent plan. She has also been having CASTRO for the last 3 weeks. She has been eating yogurt at night because she hasn't been feeling well. Current meal plan includes: Orgain 2 scoops in 8 oz of almond milk, adding ice if needed in the morning followed by 2 meals with 8 forks of protein and 8 for of vegetables. Zone perfect bar in the afternoon. Drinking 16 oz of water Current exercise plan includes: none in the last 1.5 weeks. PFSH Surgical History Hx of colonoscopy Family History Mother Family history unknown Father Family history unknown Social History Alcohol intake: current Alcohol intake frequency: holidays/special occasions only Patient Tobacco Use Status: Never used Tobacco Assessment & Plan Assessment & Plan (1) Obesity (BMI 30-39.9): Code(s): E66.9 - Obesity, unspecified Plan: The patient is going to work with her own program professional. She was given the name of another program professional if she wishes to get a 2nd opinion. Telehealth Telehealth Location of provider rendering services: practice address Location of patient: other Patient Identification confirmed using: Name, : Yes Telehealth method: voice only Patient verbally consented to treatment: Yes Patient verbally consented to billing insurance company: Yes Patient informed of any privacy concerns related to visit: Yes Minutes spent on Phone/Video with Pt.: 15 Coding Level of Care Code Tele Est Pt Level 2 (22328) Diagnoses Obesity (BMI 30-39.9) E66.9 Time Spent (min) 15
[2023-12-10 08:31] VITALS: BMI 34.6
== END 2023-12-10 12:10 | disposition home or self-care (01) ==
LOC: HO.HBS 11:58
PROVIDERS: PCP Student in an Organized Health Care Education/Training Program; Visit Provider Physician Assistant Surgical
DX: E66.9 Obesity, unspecified (principal); Z68.34 Body mass index [BMI] 34.0-34.9, adult
CPT/HCPCS: 99442

== ENCOUNTER → 2023-12-10 11:58 | Outpatient (BNVA) | payer MEDICARE, MEDICAID, SELFPAY | PROVIDERS: PCP Student in an Organized Health Care Education/Training Program; Visit Provider Physician Assistant Surgical | DX: E66.9 Obesity, unspecified (principal) ==